=== PATIENT | male | born 1960 | race Caucasian/White ===

== ENCOUNTER 2020-10-23 16:40 | Inpatient (IN) | payer OTHER ==
[~2020-10-23] VITALS: Ht 193 cm; Wt 83.1 kg
--- NOTE | 2020-10-23 17:12 | NUR ---
DR AGUILAR AT BS. PT STATES "I THINK I HAVE A BLOOD INFECTION". WAS SEEN AT [facility] THIS AFTERNOON. STATE HE HAS FINGER INFECTIONS FROM WORK HAND BATTERY CHARGER TESTER. RED STREAK EXTENDING FROM RT FINGERS TO AC AREA. RT INDEX AND MIDDLE FINGER REDDENED, BLISTERS PRESENT. 2 SCABBED AREAS TO LT PALM.
--- NOTE | 2020-10-23 17:21 | NUR ---
PT ENDORSED TO SAMUEL BURKETT RN.
[2020-10-23] MEDS ORDERED: SODIUM CHLORIDE FLUSH 10ML SYR IVF ONE (17:30)
[2020-10-23] MEDS ORDERED: CEFTRIAXONE PMX 1GM/50ML 50 ML IVPB ONE (17:30)
--- NOTE | 2020-10-23 17:35 | NUR ---
BREAK RN: PIV PLACED, LABS DRAWN, 2 SETS BLOOD CX DRAWN AND COLLECTED BY INVESTIGATIVE WRITER.
[2020-10-23] MEDS ORDERED: CEFTRIAXONE PMX 1GM/50ML 50 ML ONE (17:46)
--- NOTE | 2020-10-23 17:51 | NUR ---
BREAK RN: ABX STARTED PER OCT. 2 SETS BLOOD CX COLLECTED PRIOR TO ADMIN.
[2020-10-23 17:52] LABS: ALBUMIN 3.8 g/dL (3.4-5.0); ANION GAP 7 mmol/L (5-15); CALCIUM 8.6 mg/dL (8.5-10.1); CHLORIDE 98 mmol/L (98-107); CREATININE 1.08 mg/dL (0.7-1.3)
[2020-10-23 17:57] LABS: BASOPHILS % (AUTO) 1 % (0-1); EOSINOPHILS % (AUTO) 1 % (1-7); LYMPHOCYTES % (AUTO) 8 % (22-44); MEAN CORPUSCULAR HEMOGLOBIN 35.5 pg (27.5-34.5); MEAN CORPUSCULAR HGB CONC 35.5 g/dL (33.2-36.2); MEAN PLATELET VOLUME 7.7 fL (7.4-10.4); MONOCYTES % (AUTO) 11 % (2-9); NEUTROPHILS % (AUTO) 81 % (42-75); PLATELET COUNT 204 x10^3/uL (130-400); RED BLOOD COUNT 4.35 x10^6/uL (4.38-5.82); RED CELL DISTRIBUTION WIDTH 12.6 % (9.4-14.8)
[2020-10-23 17:58] LABS: MD NO
--- NOTE | 2020-10-23 18:31 | NUR ---
AMBULATORY TO & FROM [facility] W/OUT INCIDENT; GAIT STEADY.
--- NOTE | 2020-10-23 18:35 | NUR ---
PT REFUSED PAIN MED OFFER, AT THIS TIME.
--- NOTE | 2020-10-23 18:59 | NUR ---
DINNER PROVIDED TO PT.
[2020-10-23] MEDS ORDERED: SODIUM CHLORIDE FLUSH 10ML SYR IVF PRN (19:00)
--- NOTE | 2020-10-23 19:22 | NUR ---
PT REPORT TO DANILO CONWAY FOR ROOM 341
--- NOTE | 2020-10-23 20:01 | NUR ---
STILL WAITING FOR TRANSPORT TO UNIT. [facility], [facility], NOTIFIED.
[2020-10-23 20:24] VITALS: BP 168/94
[2020-10-23] MEDS ORDERED: ENOXAPARIN 40 MG/0.4 ML SQ SCH (20:30)
[2020-10-23] MEDS ORDERED: morphine SULFATE 10 MG/ML, 1ML IVPush PRN (20:30)
[2020-10-23] MEDS ORDERED: hydrALAzine 20 MG/ML, 1ML IVPush PRN (20:30)
[2020-10-23] MEDS ORDERED: ONDANSETRON 2MG/ML, 2ML IVPush PRN (20:30)
[2020-10-23] MEDS ORDERED: PROMETHAZINE 25 MG/ML, 1ML IM PRN (20:30)
[2020-10-23] MEDS ORDERED: VANCOMYCIN PER PHARMACY MC PRN (20:30)
[2020-10-23] MEDS ORDERED: BISACODYL 10 MG SUPP PR PRN (20:30)
[2020-10-23] MEDS ORDERED: VANCOMYCIN PMX 1GM/200ML 200 ML IV ONE (20:30)
[2020-10-23] MEDS ORDERED: POLYETHYLENE GLYCOL 17 GM PACKET PO PRN (20:30)
[2020-10-23] MEDS ORDERED: DOCUSATE 100 MG CAPSULE PO PRN (20:30)
[2020-10-23] MEDS ORDERED: ACETAMINOPHEN 325 MG TABLET PO PRN (20:30)
[2020-10-23] MEDS ORDERED: ONDANSETRON ODT 4 MG PO PRN (20:30)
[2020-10-23] MEDS ORDERED: OXYcodone IR 5MG TABLET PO PRN (20:30)
[2020-10-23] MEDS ORDERED: PHARMACOKINETIC MONITORING MC PRN (21:00)
[2020-10-23] MEDS ORDERED: PHARMACOKINETIC CONSULTATION MC ONE (21:00)
[2020-10-23] MEDS ORDERED: VANCOMYCIN 2,200 MG in SODIUM CHLORIDE 0.9% 500 ML IV ONE (21:00)
[2020-10-23] MEDS: AMPICILLIN/SULBACTAM 3 GM in SODIUM CHLORIDE 0.9% 100 ML IV SCH (21:09)
[2020-10-23] MEDS: SODIUM CHLORIDE 0.9% 1,000 ML IV SCH (21:10)
[2020-10-23 21:21] LABS: FREE T4 (FREE THYROXINE) 0.84 ng/dL (0.76-1.46)
[2020-10-24 01:55] VITALS: BP 153/84
[2020-10-24] MEDS: AMPICILLIN/SULBACTAM 3 GM in SODIUM CHLORIDE 0.9% 100 ML IV SCH ×3 (03:22→14:07)
[2020-10-24 04:51] LABS: BASOPHILS % (AUTO) 1 % (0-1); EOSINOPHILS % (AUTO) 4 % (1-7); LYMPHOCYTES % (AUTO) 23 % (22-44); MEAN CORPUSCULAR HEMOGLOBIN 35.2 pg (27.5-34.5); MEAN CORPUSCULAR HGB CONC 35.1 g/dL (33.2-36.2); MEAN PLATELET VOLUME 7.8 fL (7.4-10.4); MONOCYTES % (AUTO) 18 % (2-9); NEUTROPHILS % (AUTO) 54 % (42-75); PLATELET COUNT 198 x10^3/uL (130-400); RED BLOOD COUNT 3.93 x10^6/uL (4.38-5.82); RED CELL DISTRIBUTION WIDTH 12.2 % (9.4-14.8)
[2020-10-24 04:53] LABS: MD NO
[2020-10-24 05:23] LABS: ALBUMIN 3.1 g/dL (3.4-5.0); ANION GAP 8 mmol/L (5-15); CALCIUM 8.1 mg/dL (8.5-10.1); CHLORIDE 105 mmol/L (98-107)
[2020-10-24 05:27] LABS: ALANINE AMINOTRANSFERASE 18 U/L (12-78); ALKALINE PHOSPHATASE 49 U/L (45-117); BILIRUBIN,TOTAL 0.5 mg/dL (0.2-1.0); CHOL/HDL RATIO 3.2; CHOLESTEROL, TOTAL 165 mg/dL (140-239); CREATININE 0.98 mg/dL (0.7-1.3); HDL CHOL % 32 % (26-37); HDL CHOLESTEROL (DIRECT) 52 mg/dL (40-60); LDL CHOLESTEROL,CALCULATED 100 mg/dL (54-169); LDL/HDL RATIO 1.9 (0.5-3.0); TOTAL PROTEIN 6.5 g/dL (6.4-8.2); TRIGLYCERIDES 65 mg/dL (50-200); VLDL CHOLESTEROL 13 mg/dL (0-25)
[2020-10-24 06:41] VITALS: BP 137/75
[2020-10-24] MEDS: SODIUM CHLORIDE 0.9% 1,000 ML IV SCH (07:00)
[2020-10-24] MEDS ORDERED: ACETAMINOPHEN 325 MG TABLET PO PRN (07:30)
[2020-10-24] MEDS ORDERED: SULF1TAB24 PO (12:35)
[2020-10-24 12:41] VITALS: BP 155/83
[2020-10-24] MEDS ORDERED: VANCOMYCIN 1,800 MG in SODIUM CHLORIDE 0.9% 250 ML IV SCH (16:00)
== END 2020-10-24 15:27 | disposition home or self-care (01) | DRG 603 ==
LOC: ED 19:37 → EDIP 19:53 → 3N 20:21 → DCLOUNGE 10-24 15:21
PROVIDERS: ADMIT Internal Medicine; ATTEND Internal Medicine
DX: L03.011 Cellulitis of right finger (principal); E87.1 Hypo-osmolality and hyponatremia; L03.113 Cellulitis of right upper limb; I10 Essential (primary) hypertension; Z90.49 Acquired absence of other specified parts of digestive tract; Z87.891 Personal history of nicotine dependence
CPT/HCPCS: 36415; 80048; 80053; 80061; 82040; 83036; 83605; 83735; 84439; 84443; 85025; 87040; 96365; G0378; J0295; J0696; J1650; J3370; J7030; J7040